=== PATIENT | male | born 1990 | race Hispanic/Latino ===

== ENCOUNTER 2020-09-19 16:51 | Emergency (ER) | payer OTHER, SELFPAY ==
[2020-09-19 17:17] LABS: Absolute Lymphocytes (CBC) 3.3 K/uL (0.7-4.9); Basophils % 0.8 % (0-1.3); Hematocrit 45.6 % (39.6-49.0); Lymphocytes % 40.2 % (15.3-44.8); MPV 10.4 fL (7.6-11.3); RBC Red Blood Cell Count 5.29 M/uL (4.33-5.43)
[2020-09-19] MEDS ORDERED: dexAMETHasone 10 MG/ML VIAL ONE (17:24)
[2020-09-19 17:27] LABS: Arterial Blood Carboxyhemoglob 1.3 % (0-1.5); Blood Gas Oxyhemoglobin 89.6 % (94-97); Blood O2 Saturation 91.4 % (92-98.5)
[2020-09-19 17:29] LABS: BUN Blood Urea Nitrogen 14 mg/dL (7-18); Bicarbonate 28 mmol/L (21-32); Glucose Level 122 mg/dL (74-106); Potassium 3.9 mmol/L (3.5-5.1); Sodium Level 141 mmol/L (136-145)
--- NOTE | 2020-09-19 17:30 | RAD REPORT ---
EXAM DESCRIPTION: Ralph Single View09/19/2020 5:24 pm CLINICAL HISTORY: Inhalation injury COMPARISON: none FINDINGS: The lungs appear clear of acute infiltrate. The heart is normal size IMPRESSION: No acute abnormalities displayed
--- NOTE | 2020-09-19 21:04 | ER ---
Nurse's Notes [facility] Name: Mat Hargrove Age: 30 yrs Sex: Male : 1990 Arrival Date: 09/19/2020 Time: 16:52 Bed 8 Private MD: Diagnosis: Cough Presentation: 09/19 16:53 Chief complaint: EMS states: around 1610 pt inhaled hydrochloric and sulfuric acid for sv about 20 seconds. c/o throat burning, was anxious upon EMS arrival. Lungs CTA but mcc in route pt started wheezing, Albuterol x 1 given. Coronavirus screen: At this time, the client does not indicate any symptoms associated with coronavirus-19. Ebola Screen: No symptoms or risks identified at this time. Initial Sepsis Screen: Does the patient meet any 2 criteria? HR > 90 bpm. No. Patient's initial sepsis screen is negative. Does the patient have a suspected source of infection? No. Patient's initial sepsis screen is negative. Risk Assessment: Do you want to hurt yourself or someone else? Patient reports no desire to harm self or others. Onset of symptoms was September 19, 2020. 16:53 Method Of Arrival: EMS: [facility] sv 16:53 Acuity: MARK ANTHONY 2 sv Triage Assessment: 16:53 General: Appears in no apparent distress. comfortable, well groomed, well developed, sv Behavior is cooperative, appropriate for age, anxious. Pain: Complains of pain in left lateral anterior chest Pain currently is 5 out of 10 on a pain scale. Neuro: Level of Consciousness is awake, alert, obeys commands, Oriented to person, place, time, situation, Moves all extremities. Full function. Respiratory: Reports shortness of breath cough that is non-productive, Airway is patent Respiratory effort is even, unlabored, Respiratory pattern is regular, symmetrical, Onset: The symptoms/episode began/occurred just prior to arrival, the patient has mild shortness of breath. Derm: Skin is intact, Skin is pink, warm \T\ dry. Musculoskeletal: Range of motion: intact in all extremities. Historical: - Allergies: 16:55 No Known Allergies; sv - Immunization history:: Adult Immunizations up to date. - Social history:: Smoking status: Patient denies any tobacco usage or history of. - Family history:: not pertinent. - Hospitalizations: : No recent hospitalization is reported. Screenin:56 Abuse screen: Denies threats or abuse. Denies injuries from another. Nutritional sv screening: No deficits noted. Tuberculosis screening: No symptoms or risk factors identified. Fall Risk None identified. Assessment: 17:21 Reassessment: Patient appears in no apparent distress at this time. No changes from sv previously documented assessment. Patient and/or family updated on plan of care and expected duration. Pain level reassessed. Patient is alert, oriented x 3, equal unlabored respirations, skin warm/dry/pink. 17:42 Reassessment: Poison control called and recommended CXR, 2-4 hour observation, if he sv has SOB give a bronchodilator. Case #[id number]. 17:59 Reassessment: Patient appears in no apparent distress at this time. Patient and/or sv family updated on plan of care and expected duration. Pain level reassessed. Patient is alert, oriented x 3, equal unlabored respirations, skin warm/dry/pink. 18:44 Reassessment: Patient appears in no apparent distress at this time. Patient and/or hb family updated on plan of care and expected duration. Pain level reassessed. Patient is alert, oriented x 3, equal unlabored respirations, skin warm/dry/pink. 19:26 Reassessment: Patient appears in no apparent distress at this time. Patient and/or mg2 family updated on plan of care and expected duration. Pain level reassessed. Patient is alert, oriented x 3, equal unlabored respirations, skin warm/dry/pink. 21:00 Reassessment: Patient appears in no apparent distress at this time. Patient and/or wh family updated on plan of care and expected duration. Pain level reassessed. Patient is alert, oriented x 3, equal unlabored respirations, skin warm/dry/pink. Cardiovascular: Rhythm is regular. Respiratory: Airway is patent Respiratory effort is even, unlabored, Respiratory pattern is regular, symmetrical, Breath sounds are clear bilaterally. Vital Signs: 16:53 BP 142 / 68; Pulse 103; Resp 20; Temp 97.6(O); Pulse Ox 95% ; sv 17:00 Pulse Ox 93% on R/A; sv 18:11 BP 153 / 78; Pulse 87; Resp 13; Pulse Ox 98% on R/A; sv 19:26 BP 147 / 79; Pulse 86; Resp 18; Pulse Ox 95% on R/A; mg2 21:09 BP 150 / 101; Pulse 88; Resp 18; Pulse Ox 95% on R/A; mg2 17:00 Pt placed on O2 \T\ 2L per NC. O2 sat up to 95% sv ED Course: 16:52 Patient arrived in ED. sv 16:52 Jada Lafleur RN is Primary Nurse. sv 16:55 Triage completed. sv 16:56 ED physician to see patient. sv 16:56 Sai Blanchard MD is Attending Physician. rn 16:56 Arm band placed on. sv 16:56 Patient has correct armband on for positive identification. Bed in low position. Call sv light in reach. Side rails up X2. Pulse ox on. NIBP on. Door closed. Head of bed elevated. 17:07 Missed attempt(s): 18 gauge in right antecubital area. Bleeding controlled, band aid hb applied, catheter tip intact. 17:10 Inserted saline lock: 20 gauge in left antecubital area, using aseptic technique. hb 17:19 X-ray(s) taken. sv 17:24 XRAY Chest (1 view) In Process Unspecified. EDMS 19:06 Primary Nurse role handed off by Jada Lafleur RN sv 19:26 Neri Jarrell, PAULINA is Primary Nurse. mg2 19:28 No provider procedures requiring assistance completed. mg2 20:39 Attending Physician role handed off by Sai Blanchard MD ma2 20:39 Madhu Fuentes MD is Attending Physician. ma2 21:10 IV discontinued, intact, bleeding controlled, No redness/swelling at site. Pressure mg2 dressing applied. Administered Medications: 17:11 Drug: Decadron - Dexamethasone 10 mg Route: IVP; Site: left antecubital; sv 17:21 Follow up: Response: No adverse reaction sv Outcome: 21:02 Discharge ordered by . ma2 21:09 Discharged to home ambulatory. mg2 21:09 Condition: stable 21:09 Discharge instructions given to patient, Instructed on discharge instructions, follow up and referral plans. Demonstrated understanding of instructions, follow-up care. 21:22 Patient left the ED. Signatures: Dispatcher [employer] EDIL Jada Lafleur RN RN Sai Blanchard MD MD rn Baxter, Heather, RN RN Bethany Lovett RN RN Madhu Fuentes MD MD ma2 Neri Jarrell RN RN mg2 Corrections: (The following items were deleted from the chart) 17:11 16:53 BP 142 / 68; Pulse 103bpm; Resp 20bpm; Pulse Ox 95%; sv sv 18:14 18:11 BP 153 / 78; Pulse 87bpm; Resp 13bpm; Pulse Ox 96% RA; sv sv 18:15 17:42 Reassessment: Poison control called and recommended CXR, 2-4 hour observation, if sv he has SOB give a bronchodilator. sv
--- NOTE | 2020-09-19 21:04 | EDPHYS ---
Physician Documentation [facility] Name: Mat Hargrove Age: 30 yrs Sex: Male : 1990 Arrival Date: 09/19/2020 Time: 16:52 Bed 8 Private MD: ED Physician Madhu Fuentes HPI: 09/19 16:58 This 30 yrs old Male presents to ER via EMS with complaints of Chemical rn Inhalation. 16:58 Type of Exposure: potential inhalation. Area of exposure:. Context: The problem was rn sustained at work. Onset: The symptoms/episode began/occurred just prior to arrival. Symptoms: pain in throat, cough. The patient has not experienced similar symptoms in the past. The patient has not recently seen a physician. Reports inhalation of sulfuric acid and possible hydrochloric acid, brief exposure, no respiratory protection worn, patient reports approx 20 sec exposure, now with cough and pain in throat. Able to swallow. No pain to eyes or change in vision. Reports occasional smoker but no chronic medical or pulmonary conditions. . Historical: - Allergies: 16:55 No Known Allergies; sv - Immunization history:: Adult Immunizations up to date. - Social history:: Smoking status: Patient denies any tobacco usage or history of. - Family history:: not pertinent. - Hospitalizations: : No recent hospitalization is reported. ROS: 17:01 Constitutional: Negative for fever, chills, and weight loss, Eyes: Negative for injury, rn pain, redness, and discharge, ENT: + pain in throat Neck: Negative for injury, pain, and swelling, Cardiovascular: Negative for chest pain, palpitations, and edema, Respiratory: + cough Abdomen/GI: Negative for abdominal pain, nausea, vomiting, diarrhea, and constipation, Back: Negative for injury and pain, MS/Extremity: Negative for injury and deformity, Skin: Negative for injury, rash, and discoloration, Neuro: Negative for headache, weakness, numbness, tingling, and seizure. Exam: 17:01 Constitutional: This is a well developed, well nourished patient who is awake, alert, rn appears anxious Head/Face: Normocephalic, atraumatic. Eyes: Pupils equal round and reactive to light, extra-ocular motions intact. Lids and lashes normal. Conjunctiva and sclera are non-icteric and not injected. Cornea within normal limits. Periorbital areas with no swelling, redness, or edema. ENT: mild pharyngeal erythema, no swelling, no pooling of secretions, no stridor, + bilateral tonsillar hypertrophy. Cardiovascular: Tachycardic, regular. No pulse deficits. Respiratory: Mild tachypnea, no wheezing, no retractions Skin: Warm, dry MS/ Extremity: Pulses equal, no cyanosis. Neurovascular intact. Full, normal range of motion. Equal circumference. Neuro: Awake and alert, GCS 15, oriented to person, place, time, and situation. Cranial nerves II-XII grossly intact. Motor strength 5/5 in all extremities. Sensory grossly intact. Vital Signs: 16:53 BP 142 / 68; Pulse 103; Resp 20; Temp 97.6(O); Pulse Ox 95% ; sv 17:00 Pulse Ox 93% on R/A; sv 18:11 BP 153 / 78; Pulse 87; Resp 13; Pulse Ox 98% on R/A; sv 19:26 BP 147 / 79; Pulse 86; Resp 18; Pulse Ox 95% on R/A; mg2 21:09 BP 150 / 101; Pulse 88; Resp 18; Pulse Ox 95% on R/A; mg2 17:00 Pt placed on O2 \T\ 2L per NC. O2 sat up to 95% sv MDM: 16:56 Patient medically screened. rn 17:40 ED course: Pt feeling better, is more calm now, Oxygen 96-97%, cxr clear of infiltrate rn or pulmonary edema. . 17:47 Data reviewed: vital signs, nurses notes, lab test result(s), radiologic studies, plain rn films, and as a result, I will continue to observe the patient. Counseling: I had a detailed discussion with the patient and/or guardian regarding: the historical points, exam findings, and any diagnostic results supporting the discharge/admit diagnosis, lab results, radiology results. Response to treatment: the patient's symptoms have mildly improved after treatment. ED course: Poison control recommends 4 hour observation and symptomatic treatment. . 21:01 ED course: patient been in er for 4 hours. has no symptoms want to be discharged. ma2 workup and vs wnl. 09/19 16:57 Order name: CBC with Diff; Complete Time: 17:31 rn 09/19 16:57 Order name: Basic Metabolic Panel; Complete Time: 17:31 rn 09/19 16:57 Order name: IV Start; Complete Time: 17:10 rn 09/19 16:57 Order name: ABG; Complete Time: 17:45 rn 09/19 16:57 Order name: XRAY Chest (1 view); Complete Time: 17:31 rn 09/19 16:57 Order name: PO challenge; Complete Time: 16:57 rn Administered Medications: 17:11 Drug: Decadron - Dexamethasone 10 mg Route: IVP; Site: left antecubital; sv 17:21 Follow up: Response: No adverse reaction sv Disposition: 09/19/20 21:02 Discharged to Home. Impression: Cough. - Condition is Stable. - Discharge Instructions: Cough, Adult, [id number]. - Prescriptions for Albuterol Sulfate 90 mcg/actuation - inhale 1-2 puff by INHALATION route every 4-6 hours; 1 Inhaler. - Medication Reconciliation Form, Thank You Letter, Antibiotic Education, Prescription Opioid Use form. - Follow up: Private Physician; When: Tomorrow; Reason: Continuance of care. Signatures: Dispatcher [employer] Jada Tim RN RN Sai Hale MD MD rn Habalo, Winsy, RN RN wh Alzahri, Mohammad, MD MD ma2 Corrections: (The following items were deleted from the chart) 21:22 21:02 09/19/2020 21:02 Discharged to Home. Impression: Cough. Condition is Stable. wh Forms are Medication Reconciliation Form, Thank You Letter, Antibiotic Education, Prescription Opioid Use. Follow up: Private Physician; When: Tomorrow; Reason: Continuance of care. ma2
[2020-09-19 21:53] VITALS: TEMP 97.6
[2020-09-19 21:57] VITALS: O2SAT 95
[2020-09-19 21:58] VITALS: BP 150/101
--- NOTE | 2020-09-21 07:05 | EKG ---
Test Date: 2020-09-19 Test Time: 17:00:15 [employer]: SV MEASUREMENT RESULTS: Intervals: Rate: 92 CT: 136 QRSD: 108 QT: 374 QTc: 462 [place]: P: 67 CT: 136 QRS: 71 T: 42 INTERPRETIVE STATEMENTS: Normal sinus rhythm Normal ECG No previous ECG available for comparison Electronically Signed On 09-21-20 07:02:40 CDT by Ziyad Mata
== END 2020-09-19 21:22 | disposition home or self-care (01) ==
LOC: ER 16:51
DX: R05 Cough (principal); Z57.5 Occupational exposure to toxic agents in other industries
CPT/HCPCS: 36415; 71045; 80048; 82805; 85025; 93005; 96374; 99284; J1100